=== PATIENT | male | born 2000 | race Caucasian/White ===

== ENCOUNTER 2019-07-05 13:46 | Emergency (ER) | payer SELFPAY ==
--- NOTE | 2019-07-05 13:59 | EDM.PDOC ---
ED HPI GENERAL MEDICAL PROBLEM - General Chief Complaint: Eye Problems Stated Complaint: PINK EYE Time Seen by Provider: 07/05/19 13:48 Source of Information: Reports: Patient History Limitations: Reports: No Limitations - History of Present Illness INITIAL COMMENTS - FREE TEXT/NARRATIVE: HISTORY AND PHYSICAL: History of present illness: Patient is a 19-year-old male who presents to the emergency room with complaints of left eye irritation and drainage. He states he woke up this morning with his eye matted shut and since then has had some irritation. He denies any injury, trauma or falls. Denies having any exposures where he would have had a debris or foreign body. Does not wear contacts. Patient denies any fever, chills, headache, change in vision, syncope or near syncope. Denies any chest pain, back pain, shortness of breath or cough. Denies any GI or symptoms. Patient has been eating and drinking appropriately. Review of systems: As per history of present illness and below otherwise all systems reviewed and negative. Past medical history: As per history of present illness and as reviewed below otherwise noncontributory. Surgical history: As per history of present illness and as reviewed below otherwise noncontributory. Social history: See social history for further information Family history: As per history of present illness and as reviewed below otherwise noncontributory. Physical exam: General: Well-developed and well-nourished 19-year-old male. Alert and oriented. Nontoxic-appearing and in no acute distress. HEENT: Atraumatic, normocephalic, pupils equal and reactive bilaterally, negative for conjunctival pallor or scleral icterus, scleral injection of left eye, mucous membranes moist, TMs normal bilaterally, throat clear, neck supple, nontender, trachea midline. No drooling or trismus noted. No meningeal signs. No hot potato voice noted. Lungs: Clear to auscultation, breath sounds equal bilaterally. Heart: S1S2, regular rate and rhythm without overt murmur Abdomen: Soft, nondistended, nontender. Skin: Intact, warm, dry. No lesions or rashes noted. Extremities: Atraumatic, moves all extremities per self without difficulty or deficits, negative for cords or calf pain. Neurovascular unremarkable. Neuro: Awake, alert, oriented. Cranial nerves II through XII unremarkable. Cerebellum unremarkable. Motor and sensory unremarkable throughout. Exam nonfocal. Notes: Visual acuity is within normal limits. No intraocular pain with eye movement. Fluorescein eye exam was done, no abrasions are noted. Medication and supportive care measures were reviewed and discussed. Voices understanding and is agreeable to plan of care. Denies any further questions or concerns at this time. Diagnostics: None Therapeutics: Erythromycin ointment Prescription: Polytrim Impression: Conjunctivitis, left Plan: 1. Please apply the Polytrim eyedrop 5 times daily over the next 7 days. Make sure you are going good handwashing as this is contagious. 2. If symptoms should worsen or do not improve you need to follow-up with ophthalmology. 3. Return to the ED as needed and as discussed. Definitive disposition and diagnosis as appropriate pending reevaluation and review of above. Left Eye Pain Score (Numeric/FACES): 10 - Related Data Allergies Allergy/AdvReac Type Severity Reaction Status Date / Time No Known Allergies Allergy Verified 07/05/19 13:59 Home Meds: Home Meds Polymyxin B Sulf/Trimethoprim [Polytrim Eye Drops] 1 drop OP 5XDAY 7 Days #1 bottle 07/05/19 [Rx] ED ROS GENERAL - Review of Systems Review Of Systems: Comprehensive ROS is negative, except as noted in HPI. ED EXAM GENERAL W FULL EYE - Physical Exam Exam: See Below (See dictation) Course - Vital Signs Last Recorded V/S: Last Vital Signs Temp 97.9 F 07/05/19 13:59 Pulse 88 07/05/19 13:59 Resp 18 07/05/19 13:59 BP 136/78 07/05/19 13:59 Pulse Ox 98 07/05/19 13:59 - Orders/Labs/Meds Meds: Medications Discontinued Medications Generic Name Dose Route Start Last Admin Trade Name Freq PRN Reason Stop Dose Admin Erythromycin 1 gm 07/05/19 14:27 07/05/19 14:38 Erythromycin 0.5% Ophth Oint EYEBOTH 07/05/19 14:28 1 drp ONETIME ONE Administration Tetracaine HCl 1 ml 07/05/19 14:12 07/05/19 14:38 Tetracaine 0.5% Steri-Unit Afshan EYERT 07/05/19 14:13 1 dose ASDIRECTED ONE Administration Departure - Departure Time of Disposition: 14:29 Disposition: Home, Self-Care 01 Clinical Impression: Conjunctivitis Qualifiers: Conjunctivitis type: acute Acute conjunctivitis type: bacterial Laterality: left Qualified Code(s): H10.32 - Unspecified acute conjunctivitis, left eye - Discharge Information Prescriptions: Polymyxin B Sulf/Trimethoprim [Polytrim Eye Drops] 1 drop OP DAY 7 Days #1 bottle Instructions: Bacterial Conjunctivitis Referrals: PCP,None [Primary Care Provider] - Forms: ED Department Discharge Additional Instructions: The following information is given to patients seen in the emergency department who are being discharged to home. This information is to outline your options for follow-up care. We provide all patients seen in our emergency department with a follow-up referral. The need for follow-up, as well as the timing and circumstances, are variable depending upon the specifics of your emergency department visit. If you don't have a primary care physician on staff, we will provide you with a referral. We always advise you to contact your personal physician following an emergency department visit to inform them of the circumstance of the visit and for follow-up with them and/or the need for any referrals to a consulting specialist. The emergency department will also refer you to a specialist when appropriate. This referral assures that you have the opportunity for follow-up care with a specialist. All of these measure are taken in an effort to provide you with optimal care, which includes your follow-up. Under all circumstances we always encourage you to contact your private physician who remains a resource for coordinating your care. When calling for follow-up care, please make the office aware that this follow-up is from your recent emergency room visit. If for any reason you are refused follow-up, please contact the [facility] Emergency Department at and asked to speak to the emergency department charge nurse. [facility] [address] [place] [id number] [facility] [address] [place] [id number] 1. Please apply the Polytrim eyedrop 5 times daily over the next 7 days. Make sure you are going good handwashing as this is contagious. 2. If symptoms should worsen or do not improve you need to follow-up with ophthalmology. 3. Return to the ED as needed and as discussed. Sepsis Event Note - Focused Exam Vital Signs: Vital Signs Temp Pulse Resp BP Pulse Ox 07/05/19 13:59 97.9 F 88 18 136/78 98 Date Exam was Performed: 07/05/19 Time Exam was Performed: 20:54
[2019-07-05] MEDS ORDERED: Tetracaine HCl/PF 0.5% 4 ML Bottle EYERT ONE (14:12)
[2019-07-05] MEDS ORDERED: Erythromycin Base 0.5% Ophth Oint 1 GM Tube EYEBOTH ONE (14:27)
== END 2019-07-05 14:47 | disposition home or self-care (01) ==
LOC: MW.ED 13:46
DX: H10.32 Unspecified acute conjunctivitis, left eye (principal)
CPT/HCPCS: 99282; A9270

== ENCOUNTER 2024-10-17 09:19 | Emergency (ER) | payer SELFPAY ==
[2024-10-17] MEDS: Bacitracin Oint 28.35 GM Tube TOP ONE (10:00)
[2024-10-17] MEDS: Diphtheria,Pertussis(Acell),Tetanus Vaccine 0.5 ML Syringe IM ONE (10:01)
== END 2024-10-17 10:34 | disposition home or self-care (01) ==
LOC: MW.ED 09:19
DX: L55.1 Sunburn of second degree (principal); Z23 Encounter for immunization
CPT/HCPCS: 16020; 90471; 99283; A9270; 99282